=== PATIENT | male | born 1965 | race Caucasian/White ===

== ENCOUNTER → 2019-03-27 | Outpatient (CLI) | payer OTHER ==
[~2019-03-27] MED LIST: AMLO2.5T4 PO; CHOL100018 PO; FURO20 PO; GADOBUTROL 1 MMOL/ML 10 ML VIAL IVP ONE; INSLAN SQ; LEVO150 PO; LIB25 PO; MULT-12 PO; POTA10TA14 PO; PROP40SO PO; RABE20TA60 PO; SPIR50 PO; SUMA25TA9 PO; [UNRECOGNIZED DRUG - CODE] PO
== END | disposition home or self-care (01) ==
LOC: RADMN 19:37
PROVIDERS: ATTEND Internal Medicine
DX: G40.209 Localization-related (focal) (partial) symptomatic epilepsy and epileptic syndromes with complex partial seizures, not intractable, without status epilepticus (principal); G93.81 Temporal sclerosis; M62.50 Muscle wasting and atrophy, not elsewhere classified, unspecified site
CPT/HCPCS: 70553; A9585